=== PATIENT | female | born 1940 | race Caucasian/White ===

== ENCOUNTER 2024-01-31 06:11 | Day surgery (SDC) | payer OTHER, SELFPAY ==
[2024-01-17 10:54] LABS: % Basophils 1.6 % (0-2); % Eosinophils 0.4 % (0-6); % Immature Granulocytes 0.4 % (0-0.5); % Lymphocytes 32.7 % (20.5-51.1); % Monocytes 7.8 % (1.7-9.3); % Neutrophils 57.1 % (42.2-75.2); Absolute Basophils 0.1 10^3/uL (0-0.2); Absolute Lymphocytes 1.6 10^3/uL (1.2-3.4); Absolute Monocytes 0.4 10^3/uL (0.1-0.6); Absolute Neutrophils 2.9 10^3/uL (1.4-6.5); Hematocrit 37.6 % (37.0-47.0); Hemoglobin 12.3 g/dL (12.0-16.0); Mean Corp Hgb Conc. 32.7 g/dL (33.0-37.0); Mean Corpuscular Hgb 31.5 pg (27.0-31.0); Mean Corpuscular Volume 96.2 fL (81.0-99.0); Mean Platelet Volume 9.1 fL (7.4-10.4); Nucleated Red Blood Cells % 0 %; Platelet Count 246 10^3/uL (130-400); Red Blood Cell Count 3.91 10^6/uL (4.20-5.40); Red Cell Dist. Width 12.8 % (11.5-14.5)
[2024-01-17 10:58] LABS: ALT (SGPT) 21 U/L (0-35); AST (SGOT) 35 U/L (14-36); Albumin 4.4 g/dl (3.5-5.0); Alkaline Phosphatase 70 U/L (38-126); Blood Urea Nitrogen 14 mg/dl (7-17); Calcium 9.5 mg/dl (8.4-10.2); Carbon Dioxide 28 mmol/L (22-30); Chloride 99 mmol/L (98-107); Glucose 85 mg/dl (70-99); HDL Cholesterol 93 mg/dl; LDL Cholesterol, Calculated 148 mg/dl; Potassium 4.4 mmol/L (3.5-5.1); Sodium 133 mmol/L (135-145); Total Bilirubin 0.5 mg/dl (0.2-1.3); Total Cholesterol 271 mg/dl (50-199); Total Protein 7.3 g/dl (6.3-8.2); Triglyceride 152 mg/dl (10-149); Very Low Density Lipoprotein 30 mg/dl (0-30); eGFR > 60.00
[2024-01-17 14:33] LABS: TSH Reflex To Free T4 1.12 uIU/ml (0.47-4.68)
--- NOTE | 2024-01-26 12:19 | CM ---
Patient is scheduled for surgery with Dr. Mendez on 01/31/24. Spoke with patient prior to surgery via telephone. Introduced role of case management. Patient reports that she lives with her (who has a BKA and functions independently) in an
independent living apartment at [facility]. She functions independently. She does not use any DME but has a rolling walker, cane and commode from prior orthopedic surgery. She has never had VN services. She has a prescription plan
and uses [facility] in [place].
PCP is Dr. Cynthia Cuellar.
Patient states that she will have support from her when she goes home. She has no discharge planning concerns at this time.
[2024-01-31] MEDS: Pyridium 200 MG PO (07:03)
[2024-01-31] MEDS: NORMOSOL-R 1000 IV (07:03)
[2024-01-31] MEDS: FLAGYL 500 MG 100 IV (07:31)
== END 2024-01-31 14:15 | disposition home or self-care (01) ==
LOC: SDS 06:11
PROVIDERS: ATTENDING PHYSICIAN Obstetrics & Gynecology; FAMILY PHYSICIAN Family Medicine
DX: N81.2 Incomplete uterovaginal prolapse (principal); N39.3 Stress incontinence (female) (male)
CPT/HCPCS: 57282; 57288; 57260; 36415; 80053; 80061; 84443; 85025; 86850; 86900; 86901; 93005; J1580

== ENCOUNTER → 2024-03-21 15:20 | Outpatient (REF) | payer OTHER, SELFPAY | LOC: CLAB 15:20 | PROVIDERS: ATTENDING PHYSICIAN Obstetrics & Gynecology | DX: N39.0 Urinary tract infection, site not specified (principal) | CPT/HCPCS: 87086 ==

== ENCOUNTER → 2024-06-13 12:34 | Outpatient (REF) | payer OTHER, SELFPAY | LOC: WDC 12:34 | PROVIDERS: ATTENDING PHYSICIAN Obstetrics & Gynecology; FAMILY PHYSICIAN Family Medicine | DX: Z12.31 Encounter for screening mammogram for malignant neoplasm of breast (principal) | CPT/HCPCS: 77063; 77067 ==

== ENCOUNTER → 2024-07-11 15:06 | Outpatient (REF) | payer OTHER, SELFPAY ==
[2024-07-11 16:13] LABS: Urine Albumin Trace (Neg - Trace); Urine Bilirubin 1+ (Negative); Urine Character Very Cloudy (Clear); Urine Glucose Negative (Negative); Urine Ketone Negative (Negative); Urine Leukocyte 2+ (Negative); Urine Nitrite Positive (Negative); Urine Occult Blood 4+ (Negative); Urine Urobilinogen 1+ (Neg - 1+)
[2024-07-11 16:25] LABS: Urine Color Orange
[2024-07-11 16:26] LABS: Urine Bacteria Moderate (Negative); Urine White Cell 80-90 /HPF (0-5)
== END ==
LOC: REG 15:06
PROVIDERS: ATTENDING PHYSICIAN Obstetrics & Gynecology
DX: N39.0 Urinary tract infection, site not specified (principal)
CPT/HCPCS: 36415; 81003; 81015; 87086

== ENCOUNTER → 2024-10-27 16:44 | Outpatient (REF) | payer OTHER, SELFPAY | LOC: CLAB 16:44 | PROVIDERS: ATTENDING PHYSICIAN Obstetrics & Gynecology | DX: D49.4 Neoplasm of unspecified behavior of bladder (principal) | CPT/HCPCS: 88112 ==

== ENCOUNTER → 2025-04-02 08:44 | Outpatient (REF) | payer OTHER, SELFPAY ==
[2025-04-02 18:15] LABS: Urine Albumin 2+ (Neg - Trace); Urine Bilirubin Negative (Negative); Urine Character Slightly Cloudy (Clear); Urine Glucose Negative (Negative); Urine Ketone Negative (Negative); Urine Leukocyte 3+ (Negative); Urine Nitrite Positive (Negative); Urine Occult Blood 1+ (Negative); Urine Specific Gravity 1.015 (<1.030); Urine Urobilinogen Negative (Neg - 1+)
[2025-04-02 18:29] LABS: Urine Squamous Cell 0-2 /LPF (Few)
[2025-04-02 18:30] LABS: Urine Bacteria Many (Negative); Urine White Cell >100 /HPF (0-5)
== END ==
LOC: CLAB 08:44
PROVIDERS: ATTENDING PHYSICIAN Physician Assistant
DX: N39.0 Urinary tract infection, site not specified (principal)
CPT/HCPCS: 81003; 81015; 87077; 87086

== ENCOUNTER 2025-06-12 09:29 | Emergency (ER) | payer OTHER, SELFPAY ==
[2025-06-12 09:31] VITALS: BP 174/108
[2025-06-12 09:54] LABS: Hematocrit 37.0 % (37.0-47.0); Hemoglobin 12.2 g/dL (12.0-16.0); Mean Corp Hgb Conc. 33.0 g/dL (33.0-37.0); Mean Corpuscular Volume 92.5 fL (81.0-99.0); Nucleated Red Blood Cells % 0 %; Platelet Count 258 10^3/uL (130-400); Red Cell Dist. Width 13.6 % (11.5-14.5)
--- NOTE | 2025-06-12 10:12 | ED.GENMED ---
History of Present Illness
General
Chief Complaint: Blood Pressure Problem
Source: patient
Exam Limitations: none
Time Seen by Provider: 06/12/25 10:01
History of Present Illness
History of Present Illness:
See MDM
Past History
Past History
ED Past Medical History: GERD, HTN, Hypercholesterolemia and Hypothyroidism
ED Past Surgical History: (X2), Gynecological (hysterectomy) and Orthopedic (Left hip replacement)
Social History
Tobacco: Former smoker
Alcohol: Occasional
Personal:
Living: with family
Phy Exam
Physical Exam
Physical Exam:
See MDM
Course
Orders/Labs/Results
Orders:
Orders
06/12/25 09:35
ECG [Electrocardiogram (*1)] Urgent
Reason for Study: Fatigue / Weakness
EKG- Treatment ONCE
06/12/25 09:41
Complete Blood Count/With Diff Urgent
Comprehensive Metabolic Panel Urgent
06/12/25 10:09
0.9% Sodium Chloride 1000 ml [Nss] 1,000 ml IV BOLUS
06/12/25 10:53
HydrALAZINE [Apresoline] 10 mg PO NOW STA
Abnormal Lab Results
06/12/25
09:41
RBC 4.00 L 10^6/uL
(4.20-5.40)
Sodium 133 L mmol/L
(135-145)
Glucose 104 H mg/dl
(70-99)
06/12/25 09:41
06/12/25 09:41
Vital Signs
Initial and Last Documented VS:
Initial Vital Signs
Temp Pulse Resp BP Pulse Ox
98.3 F 82 20 174/108 98
06/12/25 09:31 06/12/25 09:31 06/12/25 09:31 06/12/25 09:31 06/12/25 09:31
Last Documented Vital Signs
Temp Pulse Resp BP Pulse Ox
98.3 F 75 15 165/86 97
06/12/25 09:31 06/12/25 11:14 06/12/25 10:01 06/12/25 11:14 06/12/25 10:13
MDM/Problems Addressed
Differential Diagnosis Includes:
Note:
CHIEF COMPLAINT(S)
Feeling unwell following a recent Botox injection for the bladder.
HISTORY OF PRESENT ILLNESS
The patient is an 85-year-old female presenting with a chief complaint of feeling unwell following a recent Botox injection for bladder issues performed yesterday. She reported not feeling well ever since the procedure. The patient mentioned a
similar reaction following her initial Botox treatment in October this year. Post-procedure, she was provided with pretzels and water, and on the recent occasion, she consumed some Evermind candies, which seemed to improve her condition slightly
but did not significantly affect her blood pressure. Prior interventions and current treatments include blood pressure medications (Losartan and Metoprolol). She denies symptoms suggesting a urinary tract infection post-procedure, as she is
currently on Ciprofloxacin and previously on Nitrofurantoin following a severe urinary tract infection.
PAST MEDICAL AND SURGICAL HISTORY
The patient has a history of surgical interventions including a laminectomy and hernia repair in December and end of April respectively this year. Previous surgeries also include unspecified bladder surgery.
EXTERNAL RECORDS REVIEWED
Notes indicate a Botox injection yesterday for bladder treatment and no significant blood pressure issues previously noted in medical records.
CHRONIC MEDICAL CONDITIONS SIGNIFICANTLY AFFECTING CARE
The patient is on antihypertensive medications including Losartan and Metoprolol.
MEDICATIONS
- Losartan, unspecified dosage, taken in the morning.
- Metoprolol, unspecified dosage, specifically taken in the evening.
- Ciprofloxacin for urinary issues.
REVIEW OF SYSTEMS
- Cardiovascular: Reports fluctuating blood pressure; current medications include antihypertensives.
- Genitourinary: Previous significant urinary tract infection; denies current symptoms post-procedure.
- Gastrointestinal: No recent symptoms discussed.
- Neurological: Reports feeling unwell post-procedure.
- Psychiatric: Denies any mood changes.
PHYSICAL EXAM
General: Alert, no acute distress.
Skin: Warm, dry.
Head: Normocephalic, atraumatic
Neck: Appears supple, trachea midline.
Eyes, Ears, Nose, Mouth, and Throat: Mildly dry mucous membranes
Cardiovascular: No signs of cyanosis. Regular rate and rhythm
Respiratory: Respirations are non-labored.
Abdomen: Non-distended
Musculoskeletal: No deformities
Neurological: No focal neurological deficit observed.
Psychiatric: Cooperative, appropriate mood and affect.
PROBLEM LIST
Acute Problems:
1. Feeling unwell post Botox injection.
2. Recent urinary tract infection.
3. Postural hypotension symptoms suspect.
Chronic Problems:
1. Hypertension
PLAN
- Recheck blood pressure after patient has been resting.
- Administer fluids to assess response and extend hydration status improvement.
- Perform EKG to assess cardiac function.
- Blood work to rule out other causes of feeling unwell.
- Monitor until feeling unwell symptoms resolve, with possible adjustments to antihypertensive therapy in coordination with patient�s primary care physician.
DIFFERENTIAL DIAGNOSIS
The Differential Diagnosis includes, in no particular order and is not limited to:
1. Reaction to recent Botox injection.
2. Hypertensive urgency or fluctuation.
3. Cardiovascular issues affecting blood pressure.
4. Medication side effects or interactions.
5. Transient ischemic attack.
6. Orthostatic hypotension.
7. Electrolyte imbalance.
8. Anxiety or stress-related responses post-procedure.
9. Infectious process other than urinary tract infection.
10. Vasovagal syncope.
My independent EKG interpretation is as follows:
- Rhythm: Not specified.
- Heart rate: 71 beats per minute.
- [place]: Left axis deviation.
- ST segments: No signs of ST elevation.
- Comparison: Appears unchanged from prior EKG.
SUMMARY OF ENCOUNTER
The patient, an 85-year-old female, was seen in the emergency department due to feeling unwell following a recent Botox injection for bladder issues. The symptoms improved with intravenous fluids and a small dose of hydralazine. The possibility that
her symptoms were a side effect of the procedure was discussed. Blood pressure management was also considered, and further discussion with her primary care physician regarding potential adjustments to her current antihypertensive therapy was advised.
DISPOSITION
Discharge.
PLAN
To recheck blood pressure after the patient has been resting, continue monitoring her response to fluids, and follow up on the alteration of antihypertensive medications with her primary care physician. The patient is prescribed hydralazine, to be
taken midday as needed if blood pressure is elevated.
MEDICATION RECONCILIATION
Hydralazine, prescribed as needed for high blood pressure if elevated midday.
MEDICAL DECISION MAKING
1. Number and Complexity of Problems Addressed:
Chronic conditions affecting care include hypertension.
Data:
- Category 1
- External record reviewed: I reviewed the patients outpatient pharmacy records.
- My independent interpretation of EKG: Rhythm 71 beats per minute, left axis deviation, no signs of ST elevation.
- Category 3
- Discussion of management with the primary care physician regarding blood pressure medication adjustment.
Risk:
Prescription medication was prescribed: Hydralazine for occasional elevated blood pressure.
Consideration of Admission/Observation: Escalation of care including admission/observation was considered given the complexity and risk of the patients presenting complaint, exam findings, and underlying comorbidities. However, ultimately, I feel
the patient is safe for outpatient management with close follow-up. Reasoning: Work-up is reassuring and does not reveal any acute life/organ-threatening processes. The patients symptoms are well-controlled upon reevaluation, reexamination is
reassuring, vitals are stable, the patient is agreeable with discharge, and reliable for follow-up.
DIAGNOSIS
Reaction to Botox injection, suspected - ICD-10-CM T50.1X5A
Hypertension - ICD-10-CM I10
*Pulse Oximetry
SaO2: 97
Oxygen Mode of Delivery: Room air
Patient hypoxic: no
*Critical Care Note
Total Time (30-74mins, 75-104mins- exclusive of procedures): Not Applicable
ED Attending Note
-
Portions of this chart may have been created with voice recognition software.� Occasional wrong word or��sound alike� substitutions may have occurred due to the inherent limitations of voice recognition software.
Discharge Plan
Departure
Patient Disposition: Home (Routine Discharge)
Date of Disposition: 06/12/25
Time of Disposition: 12:15
Patient with high blood pressure during this ER visit?: Yes
Discharge Problem:
HTN (hypertension)
Instructions: High Blood Pressure (DC)
Prescriptions:
New
hydralazine 25 mg tablet
25 mg PO ONCE Qty: 10 0RF
No Action
levothyroxine 88 MCG tablet
88 mcg PO DAILY AT 0700
cholecalciferol (vitamin D3) 2,000 UNITS tablet
2,000 units PO DAILY
omeprazole magnesium [Prilosec OTC] 20 MG tablet,delayed release (DR/EC)
20 mg PO DAILY
Eylea 2 MG/0.05 ML syringe
2 mg RIGHT EYE Q8W
Patient Comments:
last received 6 weeks ago
losartan 50 mg Tablet
50 mg PO DAILY
cetirizine [Zyrtec] 10 mg Tablet
10 mg PO DAILY
pravastatin 40 mg Tablet
40 mg PO QPM
metoprolol succinate 50 mg Tablet Extended Release 24 Hr
50 mg PO QPM
acetaminophen 500 mg Tablet
500 - 1,000 mg PO Q6H PRN (Reason: pain)
ascorbic acid (vitamin C) [Vitamin C] 500 mg Tablet
500 mg PO DAILY
vitamin B complex Tablet
1 tab PO DAILY
duloxetine 20 mg Capsule,Delayed Release(Dr/Ec)
30 mg PO BID
Systane (PF) 0.4-0.3 % Dropperette
1 drp BOTH EYES DAILY
PreserVision AREDS-2 250-90-40-1 mg Capsule
1 tab PO BID
Referrals:
Sirena Cuellar MD [Family Provider, Internal Medicine]
Activity Restrictions/Additional Instructions:
Please return for any worsening symptoms.
You may return at any time if you have further concerns.
Please follow up with your doctor at the first available appointment, preferably this week. Please discuss your ongoing blood pressure issue.
In the meantime, please take a dose of hydralazine during midday if your blood pressure is greater than 160/90.
Thank you for choosing [facility].
Interventions
Interventions:
*Risk Screen - Suicide Last Done: 06/12/25 09:31
*General Assessment Last Done: 06/12/25 09:31
*Neglect/Abuse Screening Last Done: 06/12/25 10:06
*ED- Fall Risk Assessment Last Done: 06/12/25 10:06
*ED COVID-19 Vaccine History Last Done: 06/12/25 10:06
ED- Cardiac Assessment Last Done: 06/12/25 10:36
ED- Neurological Assessment Last Done: 06/12/25 10:06
ED- Pulmonary Assessment Last Done: 06/12/25 10:36
Discharge Date and Time
Print Language: VIET[place]
[2025-06-12 10:18] VITALS: BP 170/86
[2025-06-12 10:18] LABS: ALT (SGPT) 19 U/L (0-35); AST (SGOT) 27 U/L (14-36); Albumin 4.5 g/dl (3.5-5.0); Alkaline Phosphatase 68 U/L (38-126); Blood Urea Nitrogen 13 mg/dl (7-17); Calcium 9.2 mg/dl (8.4-10.2); Carbon Dioxide 28 mmol/L (22-30); Chloride 99 mmol/L (98-107); Glucose 104 mg/dl (70-99); Potassium 4.3 mmol/L (3.5-5.1); Sodium 133 mmol/L (135-145); Total Protein 7.4 g/dl (6.3-8.2); eGFR > 60.00
[2025-06-12] MEDS: NSS 1000 IV (10:22)
[2025-06-12 10:28] VITALS: BP 170/86
[2025-06-12 11:00] VITALS: BP 165/86
[2025-06-12] MEDS: APRESOLINE 10 MG PO (11:14)
[2025-06-12 12:00] VITALS: BP 167/87
== END 2025-06-12 13:00 | disposition home or self-care (01) ==
LOC: EMR 09:29
PROVIDERS: Emergency Medicine; EMERGENCY PHYSICIAN Student in an Organized Health Care Education/Training Program; FAMILY PHYSICIAN Family Medicine
DX: I10 Essential (primary) hypertension (principal); E03.9 Hypothyroidism, unspecified; E78.00 Pure hypercholesterolemia, unspecified; Z87.891 Personal history of nicotine dependence; Z90.710 Acquired absence of both cervix and uterus; Z79.899 Other long term (current) drug therapy
CPT/HCPCS: 96360; 99284; 96361; 80053; 85025; 93005

== ENCOUNTER → 2025-10-03 11:26 | Outpatient (REF) | payer OTHER, SELFPAY | LOC: WDC 11:26 | PROVIDERS: ATTENDING PHYSICIAN Family Medicine | DX: Z12.31 Encounter for screening mammogram for malignant neoplasm of breast (principal) | CPT/HCPCS: 77063; 77067 ==